=== PATIENT | female | born 1965 | race American Indian/Alaskan Native ===

== ENCOUNTER 2020-12-18 19:59 | Emergency (ER) | payer BC ==
--- NOTE | 2020-12-18 20:39 | EDM.PDOC ---
ED HPI GENERAL MEDICAL PROBLEM - General Chief Complaint: ENT Problem Stated Complaint: POST LASIX ISSUES WITH LEFT EYE Time Seen by Provider: 12/18/20 20:29 Source of Information: Reports: Patient - History of Present Illness INITIAL COMMENTS - FREE TEXT/NARRATIVE: Pt is here for possible retina detachement on the left. She was seen in [place] yesterday for laser surgery for 2 retinal tears. She noted that her vision started to become blurry and she was starting to see floaters. She called [place] and was instructed to come to an ER with a slit lamp for evaluation. She called several clinics and ERs before arriving here. She has been doing a lot around the house and feels like she may have over done it. No headaches or vision changes on the right side. Onset: Today Left Forehead Pain Score (Numeric/FACES): 2 - Related Data Allergies Allergy/AdvReac Type Severity Reaction Status Date / Time acetaminophen Allergy Change Verified 12/18/20 20:24 [From Darvocet-N] Mental Status ibuprofen [From Motrin] Allergy Tachycardia Verified 12/18/20 20:24 Penicillins Allergy Hives Verified 12/18/20 20:24 propoxyphene Allergy Change Verified 12/18/20 20:24 [From Darvocet-N] Mental Status sulfamethoxazole Allergy Hives Verified 12/18/20 20:24 [From Bactrim] trimethoprim [From Bactrim] Allergy Hives Verified 12/18/20 20:24 Home Meds: Home Meds Aspirin 12/18/20 [History] Calcium Carbonate [Calcium] 12/18/20 [History] Famotidine [Pepcid] 12/18/20 [History] ED ROS GENERAL - Review of Systems Review Of Systems: Comprehensive ROS is negative, except as noted in HPI. ED EXAM GENERAL W FULL EYE - Physical Exam Exam: See Below Exam Limited By: No Limitations General Appearance: Alert, No Apparent Distress Eye Exam: Left Eye: Vision Changes, Other (possible retina detachement vs changes associated with recent laser surgery), Bilateral Eye: EOMI, PERRL Eyelids: Bilateral: Normal Appearance Conjunctiva & Sclera: Bilateral: Normal Appearance Cornea Exam: Bilateral: Normal Appearance Extraocular Movements: Bilateral: Intact Pupillary Size: Bilateral: 3 mm Pupillary Reaction: Bilateral: Brisk Anterior Chamber: Bilateral: Normal Appearance Posterior Chamber: Left: Abnormal Retina Ears: Normal External Exam Nose: Normal Inspection Throat/Mouth: Normal Voice, No Airway Compromise Head: Atraumatic Neck: Supple, Non-Tender Respiratory/Chest: No Respiratory Distress, Normal Breath Sounds, No Accessory Muscle Use Cardiovascular: Normal Peripheral Pulses, Regular Rate, Rhythm GI/Abdominal: Non-Tender (Female) Exam: Deferred Rectal (Female) Exam: Deferred Extremities: Normal Inspection, Normal Range of Motion Neurological: Alert, Oriented, Normal Cognition, No Motor/Sensory Deficits Psychiatric: Normal Affect, Normal Mood Skin Exam: Warm, Dry, Intact, Normal Color, No Rash Course - Vital Signs Last Recorded V/S: Last Vital Signs Temp 96.9 F 12/18/20 20:15 Pulse 66 12/18/20 20:15 Resp 18 12/18/20 20:15 BP 143/89 H 12/18/20 20:15 Pulse Ox 100 12/18/20 20:15 - Re-Assessments/Exams Free Text/Narrative Re-Assessment/Exam: Called [facility] in [place] and spoke with the substation operator apprentice production inspector. He stated that waiting until sunday for further evaluation will not change her outcome for a recurrence of her retina detachment. He advised she take it easy and avoid heavy lifting this . She is to call her doctor on sunday to see if she will require treatment by a retina specialist. Information passed on to the pt and all questions answered. Pt is ready for discharge. 12/18/20 21:03 Departure - Departure Time of Disposition: 20:56 Disposition: Home, Self-Care 01 Condition: Good Clinical Impression: Retinal detachment Qualifiers: Laterality: left Qualified Code(s): H33.22 - Serous retinal detachment, left eye - Discharge Information *PRESCRIPTION DRUG MONITORING PROGRAM REVIEWED*: Not Applicable *COPY OF PRESCRIPTION DRUG MONITORING REPORT IN PATIENT JEANIE: Not Applicable Additional Instructions: Take it easy this , no heavy lifting Call your substation operator apprentice sunday to discuss possible referral to retina specialist in [place]. Sepsis Event Note (ED) - Evaluation Sepsis Screening Result: No Definite Risk - Focused Exam Vital Signs: Vital Signs Temp Pulse Resp BP Pulse Ox 12/18/20 20:15 96.9 F 66 18 143/89 H 100
== END 2020-12-18 21:04 | disposition home or self-care (01) ==
LOC: DL.ED 19:59
DX: H33.22 Serous retinal detachment, left eye (principal); Z88.0 Allergy status to penicillin; Z88.8 Allergy status to other drugs, medicaments and biological substances; Z88.1 Allergy status to other antibiotic agents; Z79.82 Long term (current) use of aspirin
CPT/HCPCS: 99283